=== PATIENT | female | born 1950 | race Caucasian/White ===

== ENCOUNTER 2018-02-27 11:20 | Observation (INO) ==
--- NOTE | 2018-02-27 11:39 | Emergency Department Note ---
Disposition Clinical Impression: Hypoglycemia Disposition: Admitted As Inpatient Condition: Fair Instructions: Diabetic Hypoglycemia (ED) Referrals: Radha Jain CNP [Primary Care Provider] - Forms: ED Satisfaction Letter Time of Disposition: 14:17 General Adult HPI - General Chief complaint: ED Altered Mental Status Stated complaint: Fall Time Seen by Provider: 02/27/18 11:20 Source: patient Limitations: no limitations Nursing Notes Reviewed: Yes Vital Signs Reviewed: Yes - History of Present Illness HPI Narrative: Ms. Castro is brought by squad after a fall today. By the time squad arrived family had her up in a chair. Ms. Castro herself has no recollection of the fall either before or during. She remembers regaining consciousness in the ambulance. I am told that her blood sugar was 40 and she was given dextrose IV and is now 79. She has not checked her sugar at home for several months. She did not have breakfast today. Her daughter who accompanies her lives with her but works motion and time study teacher. Ms. Castro reports falling couple of days ago as well. No nausea vomiting or diarrhea. She states taking her medications as prescribed. Pain Scale: 3 - Related Data Home Medications Medication Instructions Recorded Confirmed Alendronate Sodium [Fosamax] 70 mg PO QWEEK 03/01/16 02/27/18 Aspirin [Lo-Dose Aspirin EC] 81 mg PO DAILY 03/01/16 02/27/18 Cholecalciferol (D-3) [Vitamin D] 5,000 unit PO DAILY 03/01/16 02/27/18 Lisinopril [Zestril] 20 mg PO DAILY 03/01/16 02/27/18 Lovastatin 40 mg PO HS 03/01/16 02/27/18 Ranitidine HCl [Zantac] 300 mg PO HS 03/01/16 02/27/18 SitaGLIPtin [Januvia] 100 mg PO DAILY 03/01/16 02/27/18 Tramadol HCl [Ultram] 50 mg PO TID 03/01/16 02/27/18 hydroCHLOROthiazide 25 mg PO DAILY 03/01/16 03/01/16 [Hydrochlorothiazide] metFORMIN [Glucophage] 500 mg PO BIDWM 03/01/16 02/27/18 rOPINIRole [Requip] 1 mg PO DAILY 03/01/16 02/27/18 Insulin Degludec/Liraglutide 50 unit SQ QAM 02/27/18 02/27/18 [Xultophy 100 Unit-3.6 mg/ml] Venlafaxine HCl [Effexor Xr] 1 tab PO HS 02/27/18 02/27/18 Allergies Allergy/AdvReac Type Severity Reaction Status Date / Time No Known Allergies Allergy Verified 02/27/18 11:30 Constitutional: Denies: fever, chills, weakness Eyes: Denies: vision change ENT ED: Denies: dysphagia Cardiovascular: Denies: chest pain, palpitations Respiratory: Denies: cough Gastrointestinal: Denies: abdominal pain, nausea, vomiting, diarrhea Musculoskeletal: Reports: arthralgia (Left shoulder pain after the fall. No numbness or tingling into the hand or wrist area). Denies: neck pain Neurological: Reports: other (No dizziness no lightheadedness). Denies: headache Endocrine: Denies: fatigue Hematological/Lymphatic: Denies: easy bleeding, easy bruising Allergic/Immunologic: Denies: facial swelling Past Medical History - Past Medical History Medical history: Reports: diabetes, hyperlipidemia, hypertension Psychiatric history: Reports: no psych history TRAIN MASTER history: Reports: no TRAIN MASTER history - Social History Smoking Status: Unknown if ever smoked Smokeless Tobacco Status: No Alcohol use: Reports: none Drug use: Reports: none Physical Exam - General Limitations: no limitations General appearance: alert, in no apparent distress - Head Head exam: atraumatic, normocephalic, normal inspection - Eye Eye exam: Present: normal appearance, PERRL, EOMI, other (No raccoon eyes). Absent: periorbital swelling, periorbital tenderness - ENT ENT exam: normal exam, normal oropharynx, mucous membranes moist, TM's normal bilaterally, normal external ear exam, other (No Sahni sign) - Neck Neck exam: Present: normal inspection, full ROM. Absent: tenderness - Chest Chest inspection: Present: normal inspection, symmetric chest wall rise. Absen t: tenderness (No left clavicle pain) - Respiratory Respiratory exam: Present: normal lung sounds bilaterally. Absent: respiratory distress, wheezes, stridor - Cardiovascular Cardiovascular exam: Present: regular rate, normal rhythm, normal heart sounds. Absent: systolic murmur, diastolic murmur - Abdominal Exam Abdominal exam: Present: soft, Non-Tender, other (No abdominal ecchymosis) - Expanded Upper Extremity Exam Shoulder exam: Present: normal inspection, tenderness (Mild diffuse pain to palpation especially anterior region of the shoulder.), tenderness over AC joint. Absent: full ROM (Decreased range of motion on overhead extension secondary to pain.), swelling, abrasion, laceration, ecchymosis, deformity, crepitus, dislocation, erythema - Expanded Lower Extremity Exam Hip/Pelvis exam: Present: pelvis stable. Absent: tenderness Upper leg exam: Absent: tenderness Knee exam: Absent: tenderness Ankle exam: Present: normal inspection. Absent: tenderness Neurovascular/Tendon exam: Present: normal capillary refill - Neurological Exam Neurological exam: Present: alert, CN II-XII intact. Absent: oriented X3 (knows location and name but not the year), motor sensory deficit - Psychiatric Psychiatric exam: Present: normal mood, flat affect - Skin Skin exam: Present: warm, dry Course Vital Signs Temperature 98.5 F 02/27/18 11:25 Pulse Rate 95 02/27/18 11:25 Respiratory Rate 16 02/27/18 11:25 Blood Pressure 121/79 02/27/18 11:25 O2 Sat by Pulse Oximetry 96 02/27/18 11:25 Temperature 98.5 F 02/27/18 11:25 Pulse Rate 105 02/27/18 14:17 Respiratory Rate 16 02/27/18 14:17 Blood Pressure 121/79 02/27/18 14:17 O2 Sat by Pulse Oximetry 95 02/27/18 14:17 Oxygen Delivery Oxygen Delivery Room Air Medical Decision Making - [facility] Narrative Medical decision making narrative: Hypoglycemia. This responded initially but then decreased again. Even after eating here in the emergency room her blood sugar had a decrease down to 51. At this point we checked labs to make sure she was not in renal failure or other etiology for low blood sugar. No etiology is apparent. It might be prudent at this point to bring her into the hospital hold her diabetes medications continue to check her sugar and slowly infuse dextrose. Patient and daughter are in agreement. I spoke with Ms. Castro's family physician who admits here to [facility] and presented the case. She accepted admission. Ms. Castro had a Accu-Chek of 128 just before transfer to the floor and appears well. She was able to name the year on repeat questioning after during the reassessment. This constitutes a return to baseline per her daughter. - Lab Data Lab results reviewed: Yes I reviewed the patient's lab results. Result diagrams: 02/27/18 13:20 02/27/18 13:20 Lab Results 02/27/18 02/27/18 02/27/18 Range/Units 11:25 12:08 12:09 WBC (4.3-11.1) K/mcL RBC (3.82-4.97) M/mcL Hgb (11.5-15.4) g/dL Hct (35.3-44.9) % MCV (83.0-100.0) fL MCH (28.0-33.3) pg MCHC (31.6-35.5) g/dL RDW (11.5-14.5) % Plt Count (140-400) K/mcL MPV (9.4-12.4) fL Immature Gran % (0-4) % Seg Neutrophils % % Lymphocytes % % Monocytes % % Eosinophils % % Basophils % % Neutrophils # (1.6-8.9) K/mcL Lymphocytes # (0.6-4.6) K/mcL Monocytes # (0.0-1.3) K/mcL Eosinophils # (0.0-0.6) K/mcL Basophils # (0.0-0.2) K/mcL PT (9.4-12.1) Seconds INR APTT (26.0-36.0) Seconds Sodium (136-145) mEq/L Potassium (3.5-5.1) mEq/L Chloride (98-107) mEq/L Carbon Dioxide (23-29) mEq/L BUN (8-23) mg/dL Creatinine (0.60-1.20) mg/dL Est GFR ( Amer) (> 60) Est GFR (Non-Af Amer) (> 60) BUN/Creatinine Ratio (6-26) Glucose (70-105) mg/dL POC Glucose 79 47 L* 60 L (70-99) mg/dL Calculated Osmolality (280-300) Lactic Acid (0.5-2.2) mmol/L Calcium (8.6-10.3) mg/dL Total Bilirubin (0.3-1.0) mg/dL AST (13-39) Units/L ALT (7-52) Units/L Alkaline Phosphatase (34-104) Units/L Troponin I (< 0.04) ng/mL Serum Total Protein (6.4-8.9) g/dL Albumin (3.5-5.7) g/dL Globulin (2.4-3.5) g/dL Albumin/Globulin Ratio (1.1-2.2) 02/27/18 02/27/18 02/27/18 Range/Units 13:16 13:17 13:20 WBC 6.5 (4.3-11.1) K/mcL RBC 3.74 L (3.82-4.97) M/mcL Hgb 11.5 (11.5-15.4) g/dL Hct 35.8 (35.3-44.9) % MCV 95.7 (83.0-100.0) fL MCH 30.7 (28.0-33.3) pg MCHC 32.1 (31.6-35.5) g/dL RDW 13.4 (11.5-14.5) % Plt Count 183 (140-400) K/mcL MPV 11.9 (9.4-12.4) fL Immature Gran % 0.3 (0-4) % Seg Neutrophils % 85.6 % Lymphocytes % 9.0 % Monocytes % 4.0 % Eosinophils % 0.8 % Basophils % 0.3 % Neutrophils # 5.6 (1.6-8.9) K/mcL Lymphocytes # 0.6 (0.6-4.6) K/mcL Monocytes # 0.3 (0.0-1.3) K/mcL Eosinophils # 0.1 (0.0-0.6) K/mcL Basophils # 0.0 (0.0-0.2) K/mcL PT (9.4-12.1) Seconds INR APTT (26.0-36.0) Seconds Sodium (136-145) mEq/L Potassium (3.5-5.1) mEq/L Chloride (98-107) mEq/L Carbon Dioxide (23-29) mEq/L BUN (8-23) mg/dL Creatinine (0.60-1.20) mg/dL Est GFR ( Amer) (> 60) Est GFR (Non-Af Amer) (> 60) BUN/Creatinine Ratio (6-26) Glucose (70-105) mg/dL POC Glucose 40 L* 51 L (70-99) mg/dL Calculated Osmolality (280-300) Lactic Acid (0.5-2.2) mmol/L Calcium (8.6-10.3) mg/dL Total Bilirubin (0.3-1.0) mg/dL AST (13-39) Units/L ALT (7-52) Units/L Alkaline Phosphatase (34-104) Units/L Troponin I (< 0.04) ng/mL Serum Total Protein (6.4-8.9) g/dL Albumin (3.5-5.7) g/dL Globulin (2.4-3.5) g/dL Albumin/Globulin Ratio (1.1-2.2) 02/27/18 02/27/18 02/27/18 Range/Units 13:20 13:20 13:20 WBC (4.3-11.1) K/mcL RBC (3.82-4.97) M/mcL Hgb (11.5-15.4) g/dL Hct (35.3-44.9) % MCV (83.0-100.0) fL MCH (28.0-33.3) pg MCHC (31.6-35.5) g/dL RDW (11.5-14.5) % Plt Count (140-400) K/mcL MPV (9.4-12.4) fL Immature Gran % (0-4) % Seg Neutrophils % % Lymphocytes % % Monocytes % % Eosinophils % % Basophils % % Neutrophils # (1.6-8.9) K/mcL Lymphocytes # (0.6-4.6) K/mcL Monocytes # (0.0-1.3) K/mcL Eosinophils # (0.0-0.6) K/mcL Basophils # (0.0-0.2) K/mcL PT (9.4-12.1) Seconds INR APTT (26.0-36.0) Seconds Sodium 132 L (136-145) mEq/L Potassium 4.0 (3.5-5.1) mEq/L Chloride 97 L (98-107) mEq/L Carbon Dioxide 28 (23-29) mEq/L BUN 22 (8-23) mg/dL Creatinine 1.27 H (0.60-1.20) mg/dL Est GFR ( Amer) 51 L (> 60) Est GFR (Non-Af Amer) 42 L (> 60) BUN/Creatinine Ratio 17 (6-26) Glucose 235 H (70-105) mg/dL POC Glucose (70-99) mg/dL Calculated Osmolality 285 (280-300) Lactic Acid 0.6 (0.5-2.2) mmol/L Calcium 8.9 (8.6-10.3) mg/dL Total Bilirubin 0.7 (0.3-1.0) mg/dL AST 16 (13-39) Units/L ALT 12 (7-52) Units/L Alkaline Phosphatase 75 (34-104) Units/L Troponin I < 0.03 (< 0.04) ng/mL Serum Total Protein 6.1 L (6.4-8.9) g/dL Albumin 3.7 (3.5-5.7) g/dL Globulin 2.4 (2.4-3.5) g/dL Albumin/Globulin Ratio 1.5 (1.1-2.2) 02/27/18 02/27/18 Range/Units 14:19 15:14 WBC (4.3-11.1) K/mcL RBC (3.82-4.97) M/mcL Hgb (11.5-15.4) g/dL Hct (35.3-44.9) % MCV (83.0-100.0) fL MCH (28.0-33.3) pg MCHC (31.6-35.5) g/dL RDW (11.5-14.5) % Plt Count (140-400) K/mcL MPV (9.4-12.4) fL Immature Gran % (0-4) % Seg Neutrophils % % Lymphocytes % % Monocytes % % Eosinophils % % Basophils % % Neutrophils # (1.6-8.9) K/mcL Lymphocytes # (0.6-4.6) K/mcL Monocytes # (0.0-1.3) K/mcL Eosinophils # (0.0-0.6) K/mcL Basophils # (0.0-0.2) K/mcL PT 11.2 (9.4-12.1) Seconds INR 1.0 APTT 31.2 (26.0-36.0) Seconds Sodium (136-145) mEq/L Potassium (3.5-5.1) mEq/L Chloride (98-107) mEq/L Carbon Dioxide (23-29) mEq/L BUN (8-23) mg/dL Creatinine (0.60-1.20) mg/dL Est GFR ( Amer) (> 60) Est GFR (Non-Af Amer) (> 60) BUN/Creatinine Ratio (6-26) Glucose (70-105) mg/dL POC Glucose 123 H (70-99) mg/dL Calculated Osmolality (280-300) Lactic Acid (0.5-2.2) mmol/L Calcium (8.6-10.3) mg/dL Total Bilirubin (0.3-1.0) mg/dL AST (13-39) Units/L ALT (7-52) Units/L Alkaline Phosphatase (34-104) Units/L Troponin I (< 0.04) ng/mL Serum Total Protein (6.4-8.9) g/dL Albumin (3.5-5.7) g/dL Globulin (2.4-3.5) g/dL Albumin/Globulin Ratio (1.1-2.2) - Radiology Data Radiology results reviewed: Yes I reviewed the patient's radiology results. - EKG Data EKG #1 EKG attestation: Yes I reviewed and interpreted this EKG. EKG results narrative: EKG as interpreted by me normal sinus rhythm 99 beats per minutes no T-wave abnormalities. Possible right atrial enlargement. No evidence of ventricular enlargement. No ST elevations or depressions. Borderline left axis deviation. No comparison available.
[2018-02-27] MEDS ORDERED: Ondansetron 4 MG/2 ML VIAL IVP ONE (11:56)
[2018-02-27] MEDS ORDERED: *HR* Dextrose 50 % in Water (Syg) 50 ML SYRINGE IVP ONE (13:21)
[2018-02-27 13:44] LABS: Basophils % 0.3 %; Eosinophils # 0.1 K/mcL (0.0-0.6); Eosinophils % 0.8 %; Hematocrit 35.8 % (35.3-44.9); Hemoglobin 11.5 g/dL (11.5-15.4); Immature Granulocytes % 0.3 % (0-4); Lymphocytes # 0.6 K/mcL (0.6-4.6); Mean Corpuscular HGB Conc 32.1 g/dL (31.6-35.5); Mean Corpuscular Hemoglobin 30.7 pg (28.0-33.3); Mean Corpuscular Volume 95.7 fL (83.0-100.0); Mean Platelet Volume 11.9 fL (9.4-12.4); Monocytes # 0.3 K/mcL (0.0-1.3); Neutrophils # 5.6 K/mcL (1.6-8.9); Platelet Count 183 K/mcL (140-400); Red Blood Count 3.74 M/mcL (3.82-4.97); Red Cell Distribution Width 13.4 % (11.5-14.5); Segmented Neutrophils % 85.6 %
[2018-02-27 14:00] LABS: Albumin 3.7 g/dL (3.5-5.7); Albumin/Globulin Ratio 1.5 (1.1-2.2); Bilirubin,Total 0.7 mg/dL (0.3-1.0); Calcium 8.9 mg/dL (8.6-10.3); Globulin 2.4 g/dL (2.4-3.5); Total Protein 6.1 g/dL (6.4-8.9)
[2018-02-27] MEDS ORDERED: Naloxone 0.4 MG/ML INJ IVP PRN (15:08)
[2018-02-27] MEDS ORDERED: D5% in 0.9% NACL 1,000 ML IVC SCH (15:15)
[2018-02-27 15:22] LABS: Prothrombin Time 11.2 Seconds (9.4-12.1)
[2018-02-27 15:25] LABS: Activated Partial Thrombo Time 31.2 Seconds (26.0-36.0)
--- NOTE | 2018-02-27 16:00 | Electrocardiograph Report ---
[address] [address] Test Date: 2018-02-27 Pat Name: Mariaelena Castro Department: 2000 Room: 116 Gender: F Vehicle Glass Technician: : 1950 Requested By: Preet Blackburn Order Number: [id number] Reading MD: Fransisco Ham Measurements Intervals [place] Rate: 99 P: 59 MO: 188 QRS: 9 QRSD: 93 T: 48 QT: 339 QTc: 396 Interpretive Statements SINUS RHYTHM POSSIBLE RIGHT ATRIAL ENLARGEMENT Electronically Signed On 02-27-2018 15:59:16 EST by Fransisco Ham
[2018-02-27] MEDS: D5% in 0.9% NACL 1,000 ML IVC SCH (17:03)
--- NOTE | 2018-02-27 17:58 | Internal Med History&Physical ---
Date of Encounter: 02/27/18 Time of Encounter: 19:50 Assessment and Plan (1) Hypoglycemia Current visit: Yes Status: Acute She was admitted for hype bow glycemia in a fall at home. We will be holding her Januvia and metformin and xultophy. She has an abnormal renal function so if we continue these medications showed a flap to be watched on the metformin and cut back on the Januvia. Discussed this with her primary care provider. We will check a urine just to make sure that she does not have any UTI causing the symptoms. She did take her medicines today and did not eat. So may have to make further adjustments in her medication she is currently on a IV dextrose. We will check Accu-Cheks. (2) DM2 (diabetes mellitus, type 2) Current visit: Yes Status: Acute Her left earlobe and A1c is in range like left cut back medicine. Especially if she is not having good by mouth intake. Will at least cut back to half of her dose of Januvia given the fact that she has renal insufficiency and may need to consider changing them metformin as well. Qualifiers: Diabetes mellitus truck terminal manager insulin use: with jail use Diabetes mellitus complication status: without complication Qualified Code(s): E11.9 - Type 2 diabetes mellitus without complications; Z79.4 - half-way (current) use of insulin (3) HTN (hypertension) Current visit: Yes Status: Acute Hold her hydrochlorothiazide while she is here her blood pressure to get a little bit low. We will continue to follow that continue her lisinopril if her blood pressure stays in range. Qualifiers: Hypertension type: essential hypertension Qualified Code(s): I10 - Essential (primary) hypertension (4) Hyperlipidemia Current visit: Yes Status: Acute Continue her home medication Qualifiers: Hyperlipidemia type: mixed hyperlipidemia Qualified Code(s): E78.2 - Mixed hyperlipidemia (5) Dysthymia Current visit: Yes Status: Acute Continue her home dose of Effexor (6) Osteoarthritis of right hip Current visit: Yes Status: Acute Qualifiers: Osteoarthritis type: unspecified Qualified Code(s): M16.11 - Unilateral primary osteoarthritis, right hip (7) CRF (chronic renal failure) Current visit: Yes Status: Acute She is receiving IV fluids will repeat the BMP in the morning. We made a to adjust her medications given she is hypoglycemic and she has an abnormal renal function. Qualifiers: Chronic kidney disease stage: stage 2 (mild) Qualified Code(s): N18.2 - C hronic kidney disease, stage 2 (mild) Internal Medicine - H&P: HPI Chief complaint: fall low sugar Admitted From: Home History of present illness: Ms. Castro is a 67 year old female Past medical history of type 2 diabetes. She presented to the emergency room after she had a fall at home she was noted to have low blood sugar of 40 with the squad. she has not checked her sugars in over 2 months. her daughter who lives with her was in the shower when she heard her fall. she ran out and she fell again. she hit her left shoulder. no loc no dizzy. no n/v, no siezure. no illness no fever. no dysuria. no cough. she has a hx of freq falls with her cp. she ran out of the She was given in a 50-50 that did not keep her sugar up she is now currently on IV dextrose IV fluids. Her sugar is better now. She did take her home medication at home but did not eat breakfast. He had a fall where she injured her shoulder her x-ray did not show any acute fracture she had a CT scan of her head petition stable chronic ischemic changes. With no acute changes. White count is in range her creatinine is a little bit elevated. The elevated creatinine is not something new for her. We will make adjustments for medication depending on what her sugars run she is deferring on a needle least to have the Januvia cut to 50 mg based on her renal function may consider lowering the dose of her insulin as well as holding the metformin.discussed code status with her daughter. she is full code Past Med Surg Social Fam HX - Past Medical History Medical history: arthritis (Osteoarthritis of the right hip), diabetes, hyperlipidemia, hypertension, renal disease, other (Osteopenia, restless leg syndrome, vitamin D deficiency, stress incontinence,CP with right foot, Connelly's palsy) Psychiatric history: no psych history, depression - Past Surgical History Surgical History: cholecystectomy (1990), hysterectomy - Social History Smoking Status: Unknown if ever smoked Smokeless Tobacco Status: No Alcohol use: none Drug use: none - Family History Mother Adopted: No Cause of : Diabetes Hx Family Cardiac Disorders: Yes Hx Family Endocrine Disorder: Yes (Diabetic) Father Adopted: No Living Status: Cause of : Lung cancer Hx Family Cancer: Yes (Lung) Hx Family Endocrine Disorder: Yes (Diabetic) Brother Living Status: (Note) Hx Family Cancer: Yes (Throat) Sister Living Status: Hx Family Endocrine Disorder: Yes (Diabetic) Internal Medicine - H&P: Meds Alendronate Sodium [Fosamax] 70 mg PO QWEEK 03/01/16 [History] Aspirin [Lo-Dose Aspirin EC] 81 mg PO DAILY 03/01/16 [History] Cholecalciferol (D-3) [Vitamin D] 50,000 unit PO Q1W 03/01/16 [History] Lisinopril [Zestril] 20 mg PO DAILY 03/01/16 [History] Lovastatin 40 mg PO HS 03/01/16 [History] Ranitidine HCl [Zantac] 300 mg PO HS 03/01/16 [History] SitaGLIPtin [Januvia] 100 mg PO DAILY 03/01/16 [History] Tramadol HCl [Ultram] 50 mg PO TID 03/01/16 [History] hydroCHLOROthiazide [Hydrochlorothiazide] 25 mg PO DAILY 03/01/16 [History] metFORMIN [Glucophage] 500 mg PO BIDWM 03/01/16 [History] rOPINIRole [Requip] 1 mg PO DAILY 03/01/16 [History] Docusate [Colace] 100 mg PO DAILY PRN 02/27/18 [History] Insulin Degludec/Liraglutide [Xultophy 100 Unit-3.6 mg/ml] 50 unit SQ QAM 02/27/18 [History] Venlafaxine HCl [Effexor Xr] 1 tab PO HS 02/27/18 [History] Allergy/AdvReac Type Severity Reaction Status Date / Time No Known Allergies Allergy Verified 02/27/18 11:30 All Systems PM: A 10-system review of systems was performed and is negative for pertinent findings except as documented above in the HPI. - Constitutional Constitutional: no anorexia, no chills, no fatigue, no fever(s), no lethargy, no weakness - EENT Eyes: no change in vision Nose, mouth and throat: no sore throat - Cardiovascular Cardiovascular ROS IM: no chest pain, no dyspnea, no irregular heart rhythm, no lightheadedness, no orthopnea, no palpitations, no syncope - Respiratory Respiratory: no cough, no dyspnea, no wheezing - Gastrointestinal Gastrointestinal: no abdominal pain, no constipation, no cramping, no diarrhea (but did have a loose stool yesterday pm), no hematochezia, no melena, no nausea, no vomiting - Genitourinary Genitourinary: urinary incontinence (chronic stress), no dysuria - Musculoskeletal Musculoskeletal ROS IM: arthralgias, limited range of motion (of the right foot with her cp ;she does not walk heel to toe), no numbness - Integumentary Integumentary IM: no pruritus, no rash - Neurological Neurological ROS: frequent falls, no abnormal gait - Constitutional Vitals: Temp Pulse Resp BP Pulse Ox 98.0 F 100 16 100/58 96 02/27/18 15:53 02/27/18 15:53 02/27/18 15:53 02/27/18 15:53 02/27/18 15:53 General appearance: Present: A&O X 3, no acute distress, answers questions appropriately - Head Head exam: Present: normocephalic. Absent: atraumatic (old healed scar to the middle forehead from childhood) - Eye Eye exam: Present: EOMI, PERRL. Absent: nystagmus - Neck Neck exam general surgery: Present: full ROM, supple, trachea midline. Absent: lymphadenopathy - Respiratory Respiratory exam: Present: CTAB - Cardiovascular Cardiovascular exam: Present: RRR, +S1, +S2. Absent: systolic murmur - GI/Abdominal GI/Abdominal exam: Present: soft, no peritoneal signs. Absent: distended, guarding, normal bowel sounds, tenderness - Extremities Exam Extremities exam: Present: normal capillary refill. Absent: pedal edema - Expanded Lower Extremities Exam Ankle exam: Absent: full ROM (of the right ankle) Internal Med - H&P Results - Labs CBC & Chem 7: 02/27/18 13:20 02/27/18 13:20 Labs: Short CBC 02/27/18 Range/Units 13:20 WBC 6.5 (4.3-11.1) K/mcL Hgb 11.5 (11.5-15.4) g/dL Hct 35.8 (35.3-44.9) % Plt Count 183 (140-400) K/mcL Neutrophils # 5.6 (1.6-8.9) K/mcL BMP 02/27/18 13:20 Sodium 132 L Potassium 4.0 Chloride 97 L Carbon Dioxide 28 BUN 22 Creatinine 1.27 H Glucose 235 H Calcium 8.9 Cardiac Enzymes 02/27/18 Range/Units 13:20 Troponin I < 0.03 (< 0.04) ng/mL Liver Function 02/27/18 Range/Units 13:20 Total Bilirubin 0.7 (0.3-1.0) mg/dL AST 16 (13-39) Units/L ALT 12 (7-52) Units/L Alkaline Phosphatase 75 (34-104) Units/L Albumin 3.7 (3.5-5.7) g/dL - Impressions ITS Impressions Head CT 02/27/18 11:32 IMPRESSION: No acute intracranial abnormality. Stable [id number] chronic microvascular ischemic changes. D/ / Julio Julian / Julio Julian Interpreting Provider: Julio Julian Shoulder X-Ray 02/27/18 11:33 IMPRESSION: AC joint osteoarthritis. Otherwise unremarkable radiographs left shoulder. Follow-up imaging recommended if pain persists or worsens following conservative management. D/ / Juan Arnold / Juan Arnold Interpreting Provider: Juan Arnold - VTE Reasons for not Prescribing Prophylaxis: Treatment not Indicated - Low risk for VTE
[2018-02-27] MEDS ORDERED: Famotidine 20 MG TABLET PO SCH (21:00)
[2018-02-27] MEDS ORDERED: Venlafaxine XR (24 HR) 75 MG CAP.ER.24H PO SCH (21:00)
[2018-02-27 21:13] LABS: Bilirubin,Urine Negative (Negative); Blood,Urine Trace-intact (Negative); Clarity,Urine Clear (Clear); Color,Urine Yellow (Yellow); Glucose,Urine (UA) 100 mg/dL (Normal); Ketones,Urine Negative (Negative); Leukocyte Esterase,Urine Negative (Negative); Nitrite,Urine Negative (Negative); Protein,Urine Negative (Neg-Trace); Specific Gravity,Urine 1.015 (1.010-1.025); Urobilinogen,Urine Normal (Normal)
[2018-02-27 21:19] LABS: Bacteria,Urine Few per hpf (None-Few); RBC,Urine 0-3 per hpf (0-3); Squamous Epithelial Cell,Urine Few per lpf (None-Few); WBC,Urine 0-3 per hpf (0-3)
[2018-02-28] MEDS ORDERED: rOPINIRole 1 MG TABLET PO SCH (01:00)
[2018-02-28] MEDS: D5% in 0.9% NACL 1,000 ML IVC SCH (03:42)
[2018-02-28 04:42] LABS: Calcium 8.4 mg/dL (8.6-10.3)
[2018-02-28] MEDS ORDERED: *HR* Enoxaparin 30 MG/0.3 ML SYRINGE SQ SCH (06:00)
--- NOTE | 2018-02-28 08:22 | Discharge Summary ---
Orders not resulted at time of discharge: Pending orders 02/27/18 13:20 Culture,Blood [] Stat Date of Encounter: 02/28/18 Time of Encounter: 08:22 - Discharge Diagnosis (1) Hypoglycemia Priority: Primary Status: Acute Comments: She has not been checking her sugars at home for the past 2 months. She was noted to have 2 separate falls at home. Daughter brought her into the emergency room after she called the squad and her sugars were in the 40s she got D50 did not bring her sugars up. She ended up being started on a dextrose IV infusion it did keep her sugars that IV was stopped at 6:00 this morning her sugar was 178 after lunch. We will continue to hold her medications have her start checking her sugars discussed this with her daughter will have her keep a log bring the log into her next follow-up appointment with us if her sugars run high she was instructed to call the office before the follow-up appointment for further instructions on what to do with her diabetes medication. She had a negative urine that did not show any signs of infection she had a head CT with no acute changes and a shoulder x-ray no fracture after she had her fall. (2) DM2 (diabetes mellitus, type 2) Priority: Secondary Status: Acute Qualifiers: Diabetes mellitus housekeeping coordinator insulin use: with detention use Diabetes mellitus complication status: without complication Qualified Code(s): E11.9 - Type 2 diabetes mellitus without complications; Z79.4 - grants director (current) use of insulin (3) HTN (hypertension) Priority: Secondary Status: Acute Comments: She was stable on her home medication. Qualifiers: Hypertension type: essential hypertension Qualified Code(s): I10 - Essential (primary) hypertension (4) Hyperlipidemia Priority: Secondary Status: Acute Comments: no Changes were made to her home medication for this. Qualifiers: Hyperlipidemia type: mixed hyperlipidemia Qualified Code(s): E78.2 - Mixed hyperlipidemia (5) Dysthymia Priority: Secondary Status: Acute (6) Osteoarthritis of right hip Priority: Secondary Status: Acute Comments: Her tramadol withheld while she was here because she came falls. She indenting this is an outpatient. She has not too sedated. We did have physical therapy, and evaluate her. Home health care is arranged for her as an outpatient to hopefully help with her frequent falls. Qualifiers: Osteoarthritis type: unspecified Qualified Code(s): M16.11 - Unilateral primary osteoarthritis, right hip (7) CRF (chronic renal failure) Priority: Secondary Status: Acute Comments: She was at baseline when she was discharged but elevated on admission she responded to IV fluids. Qualifiers: Chronic kidney disease stage: stage 2 (mild) Qualified Code(s): N18.2 - Chronic kidney disease, stage 2 (mild) Hospital course: Ms. Castro is a 67 year old female Who presented to the emergency room after she was noted to have several falls at home. Daughter heard her fall when she was in the shower. She did state that she had some shoulder pain today that is since resolved. She had an x-ray that showed no fracture. Any acute changes but chronic ischemic disease. She had a urine did not show any evidence of infection. When the squad evaluated her her sugar was noted to be in the 40s she got D50. It did bring her sugar up she came into the emergency room she ended up on dextrose IV infusion. Her IV was stopped at 6:00 this morning her sugars of remained up since she ate lunch and she is 1:30 after lunch. We are holding all her diabetic medications we will have her continue to hold these she will keep track of them at home we will have her bring the log of them back into her follow-up appointment next week I will certainly for sugars were high in the meantime she is to call the office for further advice on what to do with her medication. She was discharged home in a stable condition. Home Health care is being arranged as an outpatient. - Time Spent with Patient Total time spent providing and/or coordinating discharge services: - Discharge Medications Home Medications: Alendronate Sodium [Fosamax] 70 mg PO QWEEK 03/01/16 [History] Aspirin [Lo-Dose Aspirin EC] 81 mg PO DAILY 03/01/16 [History] Cholecalciferol (D-3) [Vitamin D] 50,000 unit PO Q1W 03/01/16 [History] Lisinopril [Zestril] 20 mg PO DAILY 03/01/16 [History] Lovastatin 40 mg PO HS 03/01/16 [History] Ranitidine HCl [Zantac] 300 mg PO HS 03/01/16 [History] Tramadol HCl [Ultram] 50 mg PO TID 03/01/16 [History] hydroCHLOROthiazide [Hydrochlorothiazide] 25 mg PO DAILY 03/01/16 [History] rOPINIRole [Requip] 1 mg PO DAILY 03/01/16 [History] Docusate [Colace] 100 mg PO DAILY PRN 02/27/18 [History] Venlafaxine HCl [Effexor Xr] 1 tab PO HS 02/27/18 [History] Allergies/Adverse Reactions: Allergy/AdvReac Type Severity Reaction Status Date / Time No Known Allergies Allergy Verified 02/27/18 11:30 Date of admission: 02/27/18 15:13 Primary care physician: Radha Jain CNP Consults: 02/27/18 15:08 Consult to College Tutor [CONS] Routine Reason for SW Consult: Evaluate for home health 02/27/18 17:02 Consult to College Tutor [CONS] Routine Reason for SW Consult: blood sugar maintainence 02/27/18 20:27 Consult to Physical Therapy [CONS] Routine Comment: Evaluate, develop and implement POC Reason for Consult: Evaluate Does patient have active BEDREST order?: No Is patient medically & hemodynamically stable?: Yes Patient assessed for mobility or mobilized this visit?: Yes - Constitutional Vitals: Temp Pulse Resp BP Pulse Ox 97.7 F 89 17 137/81 97 02/28/18 04:00 02/28/18 04:00 02/28/18 04:00 02/28/18 04:00 02/28/18 04:00 General appearance: Present: A&O X 3, no acute distress, answers questions appropriately - Head Head exam: Present: atraumatic (Old healed scar in the center of her forehead from childhood), normocephalic - Eye Eye exam: Present: EOMI, PERRL. Absent: nystagmus - Neck Neck exam general surgery: Present: supple, trachea midline. Absent: lymphadenopathy - Respiratory Respiratory exam: Present: CTAB - Cardiovascular Cardiovascular exam: Present: RRR. Absent: systolic murmur - GI/Abdominal GI/Abdominal exam: Present: normal bowel sounds, soft, no peritoneal signs. Absent: distended, guarding, mass, tenderness - Extremities Exam Extremities exam: Present: normal capillary refill. Absent: full ROM (Stiffness of the right ankle with decreased range of motion. Has been present since she was a child.), pedal edema - Skin Skin exam: Present: dry, warm - Patient Status Disposition: Home Health Service Condition: Fair Functional capacity at discharge: uses cane/walker Overall status at discharge: patient is progressing back to baseline - Discharge Instructions Instructions: Diabetes Mellitus Type 2 in Adults (DC), Chronic Hypertension (DC) Follow Up With: Radha Jain CNP [Primary Care Provider] - 03/04/18 1:40 pm Additional Instructions: Keep track of your blood sugars and right them down on a long. Please bring now log to your next follow-up appointment. If your sugars stay high please call the office for further instructions on what to do with your medications. - VTE Reasons for not Prescribing Prophylaxis: Treatment not Indicated - Low risk for VTE
--- NOTE | 2018-02-28 08:22 | Physician Discharge Referral ---
Home Health/Hosp Referral Info Transfer to: Home Health - Diagnosis (1) Hypoglycemia Priority: Primary Status: Acute (2) DM2 (diabetes mellitus, type 2) Priority: Secondary Status: Acute (3) HTN (hypertension) Priority: Secondary Status: Acute (4) Hyperlipidemia Priority: Secondary Status: Acute (5) Dysthymia Priority: Secondary Status: Acute (6) Osteoarthritis of right hip Priority: Secondary Status: Acute (7) CRF (chronic renal failure) Priority: Secondary Status: Acute - Respiratory Orders Smoking Cessation: Smoking cessation has been advised. For more information, call the [place] Tobacco Quit Line at 6-965-OHYINOW. - Transfer Medications Home Medications: Alendronate Sodium [Fosamax] 70 mg PO QWEEK 03/01/16 [History] Aspirin [Lo-Dose Aspirin EC] 81 mg PO DAILY 03/01/16 [History] Cholecalciferol (D-3) [Vitamin D] 50,000 unit PO Q1W 03/01/16 [History] Lisinopril [Zestril] 20 mg PO DAILY 03/01/16 [History] Lovastatin 40 mg PO HS 03/01/16 [History] Ranitidine HCl [Zantac] 300 mg PO HS 03/01/16 [History] Tramadol HCl [Ultram] 50 mg PO TID 03/01/16 [History] hydroCHLOROthiazide [Hydrochlorothiazide] 25 mg PO DAILY 03/01/16 [History] rOPINIRole [Requip] 1 mg PO DAILY 03/01/16 [History] Docusate [Colace] 100 mg PO DAILY PRN 02/27/18 [History] Venlafaxine HCl [Effexor Xr] 1 tab PO HS 02/27/18 [History] Allergies/Adverse Reactions: Allergy/AdvReac Type Severity Reaction Status Date / Time No Known Allergies Allergy Verified 02/27/18 11:30 Certification: Further, I certify that my clinical findings support that this patient is homebound (i.e. absences from home require considerable and taxing effort and are for medical reasons or [employer] or infrequently or short duration when for other reasons) because: Homebound Reason: Patient requires assistance of a person or device to safely leave home, Leaving home requires considerable and taxing effort due to condition Attestation: My signature below is to certify that this patient is under my care and that I, or nurse practitioner, or a physician's email marketing assistant working with me, has a [id number] encounter with this patient.
[2018-02-28] MEDS ORDERED: Aspirin Enteric Coated 81 MG Tablet PO SCH (09:00)
[2018-02-28] MEDS ORDERED: Cholecalciferol (D-3) 1,000 UNIT TABLET PO SCH (09:00)
[2018-02-28] MEDS ORDERED: Lisinopril 20 MG TABLET PO SCH (09:00)
[2018-02-28 15:10] VITALS: BP 132/84
== END 2018-02-28 15:03 | disposition home health service (06) ==
LOC: INPGRE 11:20 → EMEROOGRE 11:20 → INPGRE 15:41
PROVIDERS: ADMIT Family Medicine; ATTEND Family Medicine